=== PATIENT | male | born 1970 | race Caucasian/White ===

== ENCOUNTER 2022-11-29 12:00 | Outpatient (RCR) | payer OTHER, SELFPAY | END 2023-03-29 23:59 | disposition home or self-care (01) | PROVIDERS: PCP Family Medicine; Visit Provider Family Medicine | DX: M25.561 Pain in right knee (principal); M25.512 Pain in left shoulder; M22.2X9 Patellofemoral disorders, unspecified knee; M25.511 Pain in right shoulder; M62.81 Muscle weakness (generalized); M25.562 Pain in left knee; Z51.89 Encounter for other specified aftercare | CPT/HCPCS: 97110; 97112; 97161 ==

== ENCOUNTER 2023-05-02 09:47 | Outpatient (CLI) | payer OTHER, SELFPAY ==
--- NOTE | 2023-05-02 11:48 | W.ANESCHARGE ---
Anesthesia Charges Start Date/Time Anesthesia Start Date: 05/02/23 Anesthesia Start Time: 11:14 Stop Date/Time Anesthesia Stop Date: 05/02/23 Anesthesia Stop Time: 11:45
--- NOTE | 2023-05-02 12:17 | W.ANESCHARGE ---
Anesthesia Charges Start Date/Time Anesthesia Start Date: 05/02/23 Anesthesia Start Time: 11:14 Stop Date/Time Anesthesia Stop Date: 05/02/23 Anesthesia Stop Time: 11:45
== END 2023-05-02 09:48 | disposition home or self-care (01) ==
LOC: OP CLINIC 09:49
PROVIDERS: PCP Family Medicine; Visit Provider Surgery
DX: Z12.11 Encounter for screening for malignant neoplasm of colon (principal); Z86.010 Personal history of colon polyps; Z83.719 Family history of colon polyps, unspecified
CPT/HCPCS: G0105; 00811; 00812; J2704

== ENCOUNTER 2023-08-29 11:15 | Outpatient (RCR) | payer MEDICAID, OTHER, SELFPAY | END 2023-11-14 14:46 | disposition home or self-care (01) | PROVIDERS: PCP Family Medicine; Visit Provider Family Medicine | DX: M75.80 Other shoulder lesions, unspecified shoulder (principal); M25.511 Pain in right shoulder; M25.512 Pain in left shoulder; M75.02 Adhesive capsulitis of left shoulder; Z74.09 Other reduced mobility; R29.898 Other symptoms and signs involving the musculoskeletal system; Z51.89 Encounter for other specified aftercare | CPT/HCPCS: 97110; 97140; 97161 ==

== ENCOUNTER 2023-11-09 10:05 | Outpatient (CLI) | payer OTHER, SELFPAY ==
--- OUTSIDE RECORDS SUMMARY | 2023-11-10 07:03 | XMS_ITS | Referral Summary ---
Author Name Unknown Organization [facility] Address [address] [place] [id number] Care Team Providers Care Compounding Assistant Name Role Phone No Ref-Primary, Physician Primary Care Provider Allergies No known active allergies Medications No known medications Social History Tobacco Use Types Packs/Day Years Used Date Smoking Tobacco: Never Smokeless Tobacco: Never Alcohol Use Standard Drinks/Week Comments Yes 0 (1 standard drink = 0.6 oz pur e alcohol) very rare Adolescent Education Answer Date Record ed Getting School Help Needed Not on file 03/25 Sex and Gender Information Value Date Recorded Sex Assigned at Not on file Gender Identity Not on file Sexual Orientation Not on file Last Filed Vital Signs Vital Sign Reading Time Taken Comments Blood Pressure 100/80 04/24/2021 11:58 AM CDT Pulse 61 04/24/2021 11:58 AM CDT Temperature 36.8 ??C (98.3 ??F) 04/24/2021 11:58 AM C DT Respiratory Rate 16 04/24/2021 11:58 AM CDT Oxygen Saturation 98% 04/24/2021 11:58 AM CDT Inhaled Oxygen Concentration - - Weight 86.9 kg (191 lb 9.6 oz) 04/24/2021 11:58 AM CDT Height - - Body Mass Index - - Plan of Treatment Not on file Care Teams Compounding Assistant Relationship Specialty Start Date End Date No Ref-Primary, Physician PCP - General 04/24/21
--- OUTSIDE RECORDS SUMMARY | 2023-11-10 07:03 | XMS_ITS | Clinical Summary ---
Author Name Unknown Organization [facility] Address [place], [place] [address] Care Team Providers Care Practice Lead Name Role Phone Unavailable Primary Care Provider Unavailabl e Allergies Active Allergy Reactions Criticality Noted Date Comments Grass Pollen Other - Describe In Comment Field 04/12/2018 Itchiness, runny nose. Medications No known medications Active Problems Problem Noted Date Diagnosed Date Chronic insomnia 09/30/2019 Immunizations Name Administration Dates Next Due Influenza, IIV4 05/10/2019 Influenza, IIV4 (=>6mos) MDV 05/10/2019,05/03/20 18 Tdap 03/13/2013 Zoster (Shingrix-RZV, recombinant) 09/06/2018, Family History Medical History Relation Name Comments Cancer-prostate Father Kidney cancer Father Cancer-colon Maternal Grandmother Relation Name Status Comments Father Maternal Grandmother Social History Tobacco Use Types Packs/Day Years Used Date Smoking Tobacco: Never Smokeless Tobacco: Never Tobacco Cessation:Counseling Given: Yes Alcohol Use Standard Drinks/Week Comments No 0 (1 standard drink = 0.6 oz pur e alcohol) PHQ-2 Answer Date Recorded PHQ-2 TOTAL SCORE 0 09/14/2019 Social Connections Answer Date Recorded Frequency of Communication with Friends and Fami ly Not on file 07/03/2021 Financial Resource Strain Answer Date R ecorded Difficulty of Paying Living Expenses Not on file 07/03/2021 Difficulty of Paying Living Expenses Not on file 07/03/2021 Sex and Gender Information Value Date Recorded Sex Assigned at Not on file Gender Identity Not on file Sexual Orientation Not on file Obstetrics History Last Filed Vital Signs Vital Sign Reading Time Taken Comments Blood Pressure 136/80 08/14/2019 1:30 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 Pulse 69 08/14/2019 1:28 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 Temperature 36.7 ??C (98.1 ??F) 08/14/2019 1:28 PM CS T Respiratory Rate - - Oxygen Saturation 95% 08/14/2019 1:28 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 Inhaled Oxygen Concentration - - Weight 90.1 kg (198 lb 9.6 oz) 08/14/2019 1:28 P M 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 Height 181.9 cm (5' 11.61) 08/14/2019 1:[address] Body Mass Index 27.23 08/14/2019 1:28 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 Plan of Treatment Health Maintenance Due Date Last Done Comments HIV for age 15-65 02/26/1983 Hepatitis C screening for ag e 18-79 02/26/1986 Colonoscopy through age 75 02/26/2013 Lipids for age 45-75 02/26/2013 BMI (ht and wt on same day) for age 18+ 08/14/2020 08/14/2019 Depression screening for age 12+ 09/11/2020 09/12/2019, 08/14/2019 COVID-19 vaccine series (2022- season) 2023 Tetanus booster 03/13/2023 03/13/2013 Influenza for age 50-64 03/03/2024 05/10/20 19, 05/10/2019, 05/03/2018 Tdap Completed 03/13/2013 Zoster (shingles) series for age 50+ Completed 09/06/2018, 06/18/2018 Pneumococcal series for age 6-64 Aged Out No longer eligible b ased on patient's age to complete this topic
--- OUTSIDE RECORDS SUMMARY | 2023-11-10 07:03 | XMS_ITS | Clinical Summary ---
Author Name Unknown Organization [facility] Address [address] [place] [id number] Care Team Providers Care Research Microbiologist Name Role Phone No Ref-Primary, Physician Primary [...] Mass Index - - Plan of Treatment Health Maintenance Due Date Last Done Comments ADVANCE CARE PLANNING 1968 ANNUAL REVIEW OF HM ORDERS 1968 CT COLONOGRAPHY 1968 FIT 1968 FLEX SIG 1968 GLUCOSE 1968 YEARLY PREVENTIVE VISIT 1968 sDNA (Cologuard) 1968 COLONOSCOPY 02/26/1978 COLORECTAL CANCER SCREENING 02/26/1978 HIV SCREENING 02/26/1983 HEPATITIS C SCREENING 02/26/1986 HEPATITIS B IMMUNIZATION (1 of 3 - 19+ 3-dose series) 02/26/1987 LIPID 2008 COVID-19 Vaccine (4 - season) 2023 04/23/2021, 10/08/2020, 09/10/2020 DTAP/TDAP/TD IMMUNIZATION (2 - Td or Tdap) 03/13/2023 03/13/2013 PHQ-2 (once per calendar year) 2023 INFLUENZA VACCINE (Season Ended) 2024 04/06/2021, 03/24/2020, 03/18/2020, Additional history exists ZOSTER IMMUNIZATION Completed 09/06/2018, 8 HPV IMMUNIZATION Aged Out No longer e ligible based on patient's age to complete this topic IPV IMMUNIZATION Aged Out No longer e ligible based on patient's age to complete this topic MENINGITIS IMMUNIZATION Aged Out No l onger eligible based on patient's age to complete this topic Pneumococcal Vaccine: Pediatrics (0 to 5 Years) and At-Risk Patients (6 to 64 Years) Aged Out No longer eligible based on patient's age to complete this topic RSV MONOCLONAL ANTIBODY Aged Out No l onger eligible based on patient's age to complete this topic Care Teams Research Microbiologist Relationship Specialty Start Date End Date No Ref-Primary, Physician PCP - General 04/24/21
== END 2023-11-09 10:06 | disposition home or self-care (01) ==
LOC: NFLDREF 11-10 07:02
PROVIDERS: PCP Family Medicine; Referring Provider Family Medicine; Visit Provider Family Medicine
DX: E78.5 Hyperlipidemia, unspecified (principal); Z13.228 Encounter for screening for other metabolic disorders; Z12.5 Encounter for screening for malignant neoplasm of prostate
CPT/HCPCS: 80053; 80061; G0103

== ENCOUNTER 2025-01-20 11:35 | Outpatient (CLI) | payer OTHER, SELFPAY | END 2025-01-20 11:36 | disposition home or self-care (01) | LOC: NFLDREF 01-21 04:02 | PROVIDERS: PCP Family Medicine; Referring Provider Family Medicine; Visit Provider Family Medicine | DX: E78.5 Hyperlipidemia, unspecified (principal); Z12.5 Encounter for screening for malignant neoplasm of prostate | CPT/HCPCS: 80053; 80061; G0103 ==

== ENCOUNTER 2025-04-17 15:46 | Outpatient (CLI) | payer OTHER, SELFPAY ==
--- NOTE | 2025-04-17 16:00 | CRLHL7_ITS ---
For Patients: As a result of the Century Cures Act, medical imaging exams and procedure reports are released immediately into your electronic medical record. You may view this report before your referring provider. If you have questions, please contact your health care provider. Indication: Chronic sinusitis Technique: Volumetric multidetector CT images of the paranasal sinuses were obtained without the administration of IV contrast. Comparison: None available Findings: The partially visualized brain parenchyma is normal in attenuation with no evidence of midline shift or fluid collection. The frontal sinus and frontal recesses are well aerated. The ethmoid air cells are well aerated. There is bubbly secretion in the right sphenoid sinus. There is polypoid mucosal thickening in the left greater than right maxillary sinuses. The maxillary sinuses are well aerated without significant mucoperiosteal thickening. The ostiomeatal units are clear. The bony nasal septum is midline. There is no evidence of acute osseous abnormality. Impression: 1. Acute sinusitis in the sphenoid sinus. 2. Polypoid mucosal changes in the left greater than right maxillary sinuses. Please note that all CT scans at this facility use dose modulation, iterative reconstruction, and/or weight-based dosing when appropriate to reduce radiation dose to as low as reasonably achievable. Dictated by Jama iL MD @ 04/17/2025 4:59:09 PM (Electronically Signed)
== END 2025-04-17 15:47 | disposition home or self-care (01) ==
LOC: CT 15:47
PROVIDERS: PCP Family Medicine; Visit Provider Otolaryngology
DX: J32.9 Chronic sinusitis, unspecified (principal); J32.3 Chronic sphenoidal sinusitis; J32.0 Chronic maxillary sinusitis
CPT/HCPCS: 70486